=== PATIENT | female | born 1980 | race Caucasian/White ===

== ENCOUNTER 2023-12-30 16:16 | Inpatient (IN) | payer BC ==
[~2023-12-30] VITALS: Ht 160 cm; Wt 105.5 kg
[2023-12-30] MEDS ORDERED: Ondansetron 4 MG/2 ML VIAL IV ONE (16:45)
[2023-12-30] MEDS ORDERED: NS 1,000 ML IV ONE ×2 (16:45→18:30)
[2023-12-30 16:51] LABS: BASO % 0.1 % (0.0-2.0); EOS # 0.3 K/mm3 (0.0-0.7); EOS % 3.5 % (0.0-4.0); GRAN # 5.4 K/mm3 (1.4-6.5); GRAN % 65.5 % (42.2-75.2); HEMATOCRIT 43.9 % (37.0-47.0); HEMOGLOBIN 15.2 g/dl (12.5-16.0); LYMPH # 1.9 K/mm3 (1.2-3.4); LYMPH % 23.5 % (20.0-51.0); MEAN CELL VOLUME 90 fl (80.0-100.0); MEAN CORPUSCULAR HEMOGLOBIN 31 pg (27-31); MEAN CORPUSCULAR HGB CONC 35 g/dl (33.0-37.0); MEAN PLATELET VOLUME 8.7 fl (7.4-10.4); MONO # 0.6 K/mm3 (0.1-0.6); MONO % 7.2 % (1.7-9.3); PLATELET COUNT 321 K/mm3 (130-400); RED BLOOD COUNT 4.89 M/mm3 (4.10-5.30); REDCELL DISTRIBUTION WIDTH-CV 11.7 % (11.5-14.5)
[2023-12-30] MEDS ORDERED: Ketorolac 30 MG/ML VIAL IV ONE (17:00)
[2023-12-30 17:18] LABS: ALBUMIN 4.5 g/dL (3.5-5.0); BILIRUBIN,TOTAL 2.9 mg/dL (0.2-1.2); CALCIUM 9.6 mg/dL (8.4-10.2); CREATININE, serum 1.02 mg/dL (0.57-1.11); POTASSIUM 3.5 mEq/L (3.5-4.5)
[2023-12-30] MEDS ORDERED: Iohexol 300 - 100 ML VIAL IV ONE (17:49)
[2023-12-30] MEDS ORDERED: NS 100 ML IV ONE (17:49)
[2023-12-30] MEDS ORDERED: Heparin 5,000 UNITS/ML 1 ML VIAL SQ SCH (19:00)
[2023-12-30] MEDS ORDERED: Ondansetron 4 MG/2 ML VIAL IV PRN (19:00)
[2023-12-30] MEDS ORDERED: LR 1,000 ML IV SCH (19:00)
[2023-12-30] MEDS ORDERED: Acetaminophen 325 MG TAB PO PRN (19:00)
[2023-12-30 19:43] LABS: COLLECTION METHOD CLEAN CATCH
[2023-12-30] MEDS ORDERED: Pantoprazole 40 MG in NS 10 ML IV SCH (19:45)
[2023-12-30 19:58] LABS: URINE APPEARANCE CLEAR (CLEAR/HAZY); URINE BLOOD NEGATIVE (NEGATIVE); URINE COLOR YELLOW (YELLOW); URINE GLUCOSE NEGATIVE (NEGATIVE); URINE KETONE 2+ (NEGATIVE); URINE NITRATE NEGATIVE (NEGATIVE); URINE PROTEIN(semi-quant) TRACE (NEGATIVE); URINE UROBILINOGEN 0.2 E.U/dL (0.2-1.0)
[2023-12-30 21:00] VITALS: BP_SYST 125
--- NOTE | 2023-12-30 21:15 | NUR ---
pt arrived to room 328 at 1915. pt ambulated to bed without issue. pt reporting some nausea and abd pain. admission, med rec, and physical assessment complete. pt still needing NG tube placed at this time. call light in reach. all needs met at this time.
[2023-12-30 21:17] VITALS: BP 125/73; PULSE 74; TEMP 97.7
--- NOTE | 2023-12-30 21:49 | NUR ---
14 FR NG tube placed to left nare @54cm x1 attempt by this nurse. Immediate return of gastric contents. Attached to low intermittent suction.
[2023-12-30] MEDS ORDERED: Ketorolac 15 MG/ML VIAL IV PRN (23:15)
--- NOTE | 2023-12-30 23:24 | NUR ---
pt reporting abd pain rated 6/10. prn toradol administered per orders.
[2023-12-31] VITALS (13 sets, daily range): BP systolic 99–125; BP diastolic 61–79; PULSE 58–79; TEMP 97.9–98.3
[2023-12-31 06:19] LABS: BASO % 0.2 % (0.0-2.0); EOS # 0.3 K/mm3 (0.0-0.7); EOS % 5.6 % (0.0-4.0); GRAN # 2.7 K/mm3 (1.4-6.5); GRAN % 53.7 % (42.2-75.2); LYMPH # 1.5 K/mm3 (1.2-3.4); LYMPH % 30.4 % (20.0-51.0); MEAN CELL VOLUME 90 fl (80.0-100.0); MEAN CORPUSCULAR HGB CONC 34 g/dl (33.0-37.0); MEAN PLATELET VOLUME 9.2 fl (7.4-10.4); MONO # 0.5 K/mm3 (0.1-0.6); MONO % 9.9 % (1.7-9.3); RED BLOOD COUNT 3.75 M/mm3 (4.10-5.30)
[2023-12-31 06:27] LABS: CALCIUM 8.2 mg/dL (8.4-10.2); CREATININE, serum 0.76 mg/dL (0.57-1.11); POTASSIUM 3.3 mEq/L (3.5-4.5)
[2023-12-31 06:39] LABS: HEMATOCRIT 33.9 % (37.0-47.0); HEMOGLOBIN 11.5 g/dl (12.5-16.0); MEAN CORPUSCULAR HEMOGLOBIN 31 pg (27-31); PLATELET COUNT 213 K/mm3 (130-400)
[2023-12-31] MEDS ORDERED: NS & 40 mEq KCl 1,000 ML IV SCH (08:45)
--- NOTE | 2023-12-31 10:13 | NUR ---
mechanical maintenance worker met with pt to discuss intake information. She reports to live with her children in [place]. She sees Griselda Sampson for PCP needs and obtains medications from [facility] with no difficulties. She confirmed her insurance as [employer]. She reports her mother, Ayesha [phone] as her contact. She does not have a DPOA-HC and has four children. Two children are above age 18, Kelli Osman [phone] and son, Rasheed Osman [phone]. SW advised these two children were her NOK without a DPOA-HC. She was agreeable to this. She is independent with ADLS and ues no DME. She intends to return home upon discharge. Discharge Plan: home
[2023-12-31] MEDS ORDERED: ZYRTEC 10MG10 MG PO (11:06)
--- NOTE | 2023-12-31 12:18 | NUR ---
D: Blast Furnace Tender stopped by room on rounds. A: Pt was resting and content with mom in the room. Pt has no needs right now. Pt appreciated the visit. P: Blast Furnace Tender informed pt that if she needed anything from the transmission mechanic area to let her nurse know. Blast Furnace Tender will follow up as needed.
--- NOTE | 2023-12-31 14:40 | NUR ---
PATIENT OUT OF SHOWER, TOLERATED WELL WITH NG CLAMPED. PATIENT REPORTS SHE HAS NOW PASSED SOME GAS, NO BM YET. SHE WOULD LIKE TO SEE IF SHE COULD STAY CLAMPED AND SEE HOW SHE DOES. NOTIFIED AND AGREE TO LET PATIENT REMAIN CLAMPED IF TOLERATING WELL. PATIENT SITTING UP IN BEDSIDE TALKING TO HER DAD, NO COMPLAINTS.
--- NOTE | 2023-12-31 20:00 | NUR ---
NG TUBE PULLED PER ANDIE ORDERS. TUBE INTACT. PATIENT TOLERATED WELL. PATIENT DENIES NEW ONSET ABDOMINAL PAIN AND NAUSEA, BOWEL SOUNDS HYPO ACTIVE IN RT QUADS. IVF WITH 40Meq RUNNING IN LT AC. PATIENT IS AXOX4 AND PLEASANT, EAGERLY AWAITS POSSIBLE DISCHARGE TOMORROW.
--- NOTE | 2023-12-31 21:52 | NUR ---
ENTERED PATIENT ROOM TO CHANGE IVF NS WITH 40 MeQ. PATIENT DENIES PAIN AND NAUSEA. VS ARE WNL.
[2024-01-01] VITALS (7 sets, daily range): BP systolic 113–132; BP diastolic 69–76; PULSE 71–75; TEMP 98.1–98.7
[2024-01-01 05:56] LABS: BASO % 0.3 % (0.0-2.0); EOS # 0.3 K/mm3 (0.0-0.7); EOS % 7.4 % (0.0-4.0); GRAN # 1.3 K/mm3 (1.4-6.5); GRAN % 34.5 % (42.2-75.2); HEMOGLOBIN 11.7 g/dl (12.5-16.0); LYMPH # 1.8 K/mm3 (1.2-3.4); LYMPH % 47.7 % (20.0-51.0); MEAN CELL VOLUME 90 fl (80.0-100.0); MEAN CORPUSCULAR HEMOGLOBIN 32 pg (27-31); MEAN CORPUSCULAR HGB CONC 35 g/dl (33.0-37.0); MEAN PLATELET VOLUME 8.7 fl (7.4-10.4); MONO # 0.4 K/mm3 (0.1-0.6); MONO % 9.8 % (1.7-9.3); PLATELET COUNT 211 K/mm3 (130-400); REDCELL DISTRIBUTION WIDTH-CV 11.8 % (11.5-14.5)
[2024-01-01 05:58] LABS: HEMATOCRIT 33.4 % (37.0-47.0)
[2024-01-01 06:19] LABS: CALCIUM 8.4 mg/dL (8.4-10.2); CREATININE, serum 0.74 mg/dL (0.57-1.11); POTASSIUM 3.7 mEq/L (3.5-4.5)
--- NOTE | 2024-01-01 09:00 | NUR ---
PT ALERT AND SITTING IN BED. HEAD TO TOE ASSESSMENT COMPLETE. NORMAL HEART SOUNDS 1&2. LUNG SOUNDS CLEAR. PULSES READILY PALPABLE IN ALL EXTREMETIES. NO SWELLING, REDNESS, OR PAIN IN BLE. PT STATES THAT SHE IS NOT IN PAIN. PT INDEPENDENT IN ROOM. STATED THAT SHE IS READY TO GO HOME TODAY. CALL LIGHT WITHIN REACH. NO FURTHER NEEDS.
--- NOTE | 2024-01-01 13:54 | NUR ---
IV IN RIGHT HAND DISCONTINUED. PRESSURE DRESSING APPLIED. CATHETER TIP INTACT. PT WAITING ON FAMILY TO DISCHARGE. NO FURTHER NEEDS.
--- NOTE | 2024-01-01 14:13 | NUR ---
PT IS DISCHARGING TO HOME. GAVE DISCHARGE INSTRUCTIONS. NO QUESTIONS OR CONCERNS. ALL PERSONAL BELONGINGS WITH PT. IV DC'D. NO FURTHER NEEDS.
== END 2024-01-01 14:05 | disposition home or self-care (01) | DRG 390 ==
LOC: COL.ER 16:16 → SURG 18:38
PROVIDERS: Physician Assistant; ADMIT Internal Medicine
DX: K56.609 Unspecified intestinal obstruction, unspecified as to partial versus complete obstruction (principal); J45.909 Unspecified asthma, uncomplicated; Z90.49 Acquired absence of other specified parts of digestive tract
CPT/HCPCS: J1650; J1885; J2405; J2470; J3480; J7030; J7120; Q9967